=== PATIENT | female | born 1975 | race Caucasian/White ===

== ENCOUNTER 2021-03-05 15:17 | Emergency (ER) | payer MEDICAID ==
[~2021-03-05] VITALS: Ht 167.6 cm; Wt 70.0 kg
[2021-03-05 16:09] LABS: BASOPHILS % 0.8 % (0.0-2.0); EOSINOPHILS % 2.4 % (0.0-5.0); HEMATOCRIT. 26.7 % (36.0-48.0); HEMOGLOBIN. 8.5 g/dL (12.0-16.0); LYMPHOCYTES % 26.4 % (20.0-50.0); MEAN CORPUSCULAR HEMOGLOBIN 25.7 pg (28.0-32.0); MEAN CORPUSCULAR VOLUME 80.7 fL (81.0-99.0); MEAN PLATELET VOLUME 7.6 fl (7.4-10.4); MONOCYTES % 9.5 % (2.0-8.0); NEUTROPHILS % 60.9 % (40.0-76.0); PLATELET 375 x1000/uL (130-400); RED BLOOD CELL COUNT 3.31 mill/uL (4.2-5.4); RED CELL DISTRIBUTION WIDTH 20.8 % (11.6-14.6)
[2021-03-05 16:16] LABS: CHLORIDE 112 mEq/L (98-107)
[2021-03-05 16:20] LABS: HCG SCREEN NEGATIVE
[2021-03-05 16:27] VITALS: BP 114/66
[2021-03-05] MEDS ORDERED: ACETAMINOPHEN 325MG TABLET PO STA (16:45)
[2021-03-05] MEDS ORDERED: SODIUM CHLORIDE 0.9% 1,000 ML IV ONE (16:45)
== END 2021-03-05 18:46 | disposition home or self-care (01) ==
LOC: ER 15:17
DX: N94.6 Dysmenorrhea, unspecified (principal); M79.605 Pain in left leg; M79.604 Pain in right leg; R42 Dizziness and giddiness
CPT/HCPCS: 36415; 80053; 84703; 85025; 86850; 86900; 86901; 99283; J7030

== ENCOUNTER 2022-05-17 21:19 | Emergency (ER) | payer MEDICAID ==
[~2022-05-17] VITALS: Ht 167.6 cm; Wt 79.0 kg
[2022-05-17] MEDS ORDERED: KETOROLAC 30MG/ML VIAL IV STA (23:27)
[2022-05-17 23:55] LABS: HEMATOCRIT. 36.1 % (36.0-48.0); HEMOGLOBIN. 11.7 g/dL (12.0-16.0); MEAN CORPUSCULAR HEMOGLOBIN 30.8 pg (28.0-32.0); MEAN CORPUSCULAR VOLUME 95.1 fL (81.0-99.0); PLATELET 307 x1000/uL (130-400); RED BLOOD CELL COUNT 3.79 mill/uL (4.2-5.4); RED CELL DISTRIBUTION WIDTH 13.2 % (11.6-14.6)
[2022-05-18 00:07] LABS: CHLORIDE 110 mEq/L (98-107)
[2022-05-18 00:10] LABS: HCG SCREEN NEGATIVE
[2022-05-18 00:18] LABS: PLATELET ESTIMATE NORMAL
[2022-05-18] MEDS ORDERED: NA PHOS,M-B/NA PHOS,DI-BA ENEMA 118ML PR ONE (02:45)
[2022-05-18 03:00] VITALS: BP 131/81
== END 2022-05-18 07:02 | disposition home or self-care (01) ==
LOC: ER 21:19
DX: K59.00 Constipation, unspecified (principal); D64.9 Anemia, unspecified; Z98.890 Other specified postprocedural states
CPT/HCPCS: 36415; 74176; 80053; 83605; 83690; 84703; 85025; 96374; 99284; J1885